=== PATIENT | female | born 1950 | race Caucasian/White ===

== ENCOUNTER 2018-03-22 20:53 | Emergency (ER) | payer OTHER ==
[~2018-03-22] VITALS: Ht 162.6 cm; Wt 68.0 kg
[~2018-03-22 20:53] MED LIST: CIPROFLOXACN500 MG PO; CLONIDINE PO; ENALAPRIL2.5 MG PO; LORTAB 7.57.5 MG PO; ZESTRIL10 M1 PO
[2018-03-22 23:56] VITALS: BP 134/85
== END 2018-03-23 00:05 | disposition home or self-care (01) ==
LOC: ED 20:53
DX: S00.83XA Contusion of other part of head, initial encounter (principal); S00.33XA Contusion of nose, initial encounter; S00.531A Contusion of lip, initial encounter; S00.12XA Contusion of left eyelid and periocular area, initial encounter; S40.012A Contusion of left shoulder, initial encounter; W01.0XXA Fall on same level from slipping, tripping and stumbling without subsequent striking against object, initial encounter; Y93.9 Activity, unspecified; Y92.009 Unspecified place in unspecified non-institutional (private) residence as the place of occurrence of the external cause